=== PATIENT | female | born 1955 | race Caucasian/White ===

== ENCOUNTER 2019-11-16 11:26 | Observation (INO) | payer OTHER ==
[~2019-11-16] VITALS: Ht 162.6 cm; Wt 62.9 kg
--- NOTE | 2019-11-16 11:28 | NUR ---
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 RICHARDSON. NO NEED FOR CODE NEURO AT THIS TIME SX HAVE RESOLVED.
--- NOTE | 2019-11-16 11:30 | NUR ---
BIB [facility] FOR APHASIA NOTICED BY AT 1130. BY THE TIME [facility] ARRIVED ON SCENE SYMPTOMS RESOLVED FSBS 137 ON [address] (TOOK THIS AM) NO HX OF TIA/STROKE. DOES HAVE EXTENSIVE CARDIAC/VASCULAR DX WITH MULTIPLE STENTS ON ARRIVAL [facility] COMPLETELY NEGATIVE. PROVIDER TO BEDSIDE- NO CODE NEURO BUT TO HAVE EXPEDITED STROKE WORKUP
--- NOTE | 2019-11-16 11:52 | NUR ---
Called CT scan to expedite imaging Patient remains asymptomatic
--- NOTE | 2019-11-16 11:59 | NUR ---
LABS DRAWN AT 1155AM TO CT SCAN AT 1158AM
[2019-11-16] MEDS ORDERED: PLEASE ENTER HEIGHT AND WEIGHT MC SCH (12:00)
[2019-11-16] MEDS ORDERED: SODIUM CHLORIDE FLUSH 10ML SYR IVF ONE (12:00)
[2019-11-16] MEDS ORDERED: PLEASE ENTER ALLERGIES MC SCH (12:00)
[2019-11-16 12:09] LABS: BASOPHILS # (AUTO) 0.01 x10^3/uL (0-0.1); BASOPHILS % (AUTO) 0 % (0-1); EOSINOPHILS # (AUTO) 0.19 x10^3/uL (0-0.4); EOSINOPHILS % (AUTO) 2 % (1-7); LYMPHOCYTES # (AUTO) 1.64 x10^3/uL (1-3.4); LYMPHOCYTES % (AUTO) 19 % (22-44); MD NO; MEAN CORPUSCULAR HEMOGLOBIN 31.2 pg (27.0-34.8); MEAN CORPUSCULAR HGB CONC 33.7 g/dL (32.4-35.8); MEAN CORPUSCULAR VOLUME 92.7 fL (80-100); MEAN PLATELET VOLUME 7.4 fL (7.4-10.4); MONOCYTES # (AUTO) 0.66 x10^3/uL (0.2-0.8); MONOCYTES % (AUTO) 8 % (2-9); NEUTROPHILS # (AUTO) 6.27 x10^3/uL (1.8-6.8); NEUTROPHILS % (AUTO) 72 % (42-75); PLATELET COUNT 251 x10^3/uL (130-400); RED BLOOD COUNT 4.77 x10^6/uL (3.82-5.3); RED CELL DISTRIBUTION WIDTH 13.4 % (9.6-15.2)
[2019-11-16 12:16] LABS: INTERNATIONAL NORMALIZED RATIO 0.92 (0.93-1.1); PROTHROMBIN TIME 9.7 Seconds (9.6-11.5)
[2019-11-16 12:17] LABS: ALBUMIN 3.3 g/dL (3.4-5.0); ANION GAP 6 mmol/L (5-15); CALCIUM 8.9 mg/dL (8.5-10.1); CHLORIDE 107 mmol/L (98-107)
[2019-11-16 12:20] LABS: ALANINE AMINOTRANSFERASE 19 U/L (12-78); ALKALINE PHOSPHATASE 89 U/L (45-117); BILIRUBIN,TOTAL 0.5 mg/dL (0.2-1.0); CREATININE 0.76 mg/dL (0.55-1.02); TOTAL PROTEIN 7.5 g/dL (6.4-8.2)
--- NOTE | 2019-11-16 12:32 | NUR ---
Ua sent Vss on shelter monitor Remains asymptomatic
[2019-11-16 12:44] LABS: MICROSCOPIC NOT IND
[2019-11-16 12:50] LABS: CULTURE INDICATED? NO
[2019-11-16] MEDS ORDERED: SODIUM CHLORIDE FLUSH 10ML SYR IVF PRN (13:00)
--- NOTE | 2019-11-16 13:06 | NUR ---
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
--- NOTE | 2019-11-16 13:18 | NUR ---
lunch tray ordered
--- NOTE | 2019-11-16 13:24 | NUR ---
attempted to call report x 1. Rn unavailable- to call handbook writer back
--- NOTE | 2019-11-16 13:44 | NUR ---
REPORT CALLED TO RENEE FORBES
[2019-11-16] MEDS ORDERED: CLOP75TA52 PO (13:56)
[2019-11-16] MEDS ORDERED: ATOR-2 PO (13:56)
[2019-11-16] MEDS ORDERED: AMIT25TA PO (13:56)
[2019-11-16] MEDS ORDERED: METO50TA82 PO (13:56)
[2019-11-16] MEDS ORDERED: GLYB1TAB14 PO (13:56)
[2019-11-16] MEDS ORDERED: AMLO10TA8 PO (13:56)
[2019-11-16] MEDS ORDERED: LOSA25TA25 PO (13:56)
[2019-11-16] MEDS ORDERED: CALC1TAB84 PO (13:56)
[2019-11-16] MEDS ORDERED: CHOL200040 PO (13:56)
[2019-11-16 16:23] VITALS: BP 156/81
[2019-11-16] MEDS ORDERED: ONDANSETRON 2MG/ML, 2ML IVPush PRN (16:30)
[2019-11-16] MEDS ORDERED: OXYcodone IR 5MG TABLET PO PRN (16:30)
[2019-11-16] MEDS ORDERED: BISACODYL 10 MG SUPP PR PRN (16:30)
[2019-11-16] MEDS ORDERED: PROMETHAZINE 25 MG/ML, 1ML IM PRN (16:30)
[2019-11-16] MEDS ORDERED: ONDANSETRON ODT 4 MG PO PRN (16:30)
[2019-11-16] MEDS ORDERED: POLYETHYLENE GLYCOL 17 GM PACKET PO PRN (16:30)
[2019-11-16] MEDS ORDERED: hydrALAzine 20 MG/ML, 1ML IVPush PRN (16:30)
[2019-11-16] MEDS ORDERED: DOCUSATE 100 MG CAPSULE PO PRN (16:30)
[2019-11-16] MEDS ORDERED: morphine SULFATE 10 MG/ML, 1ML IVPush PRN (16:30)
[2019-11-16 17:03] LABS: MICROSCOPIC NOT IND
[2019-11-16 17:07] LABS: CULTURE INDICATED? NO
[2019-11-16 17:08] LABS: FREE T4 (FREE THYROXINE) 1.2 ng/dL (0.76-1.46)
[2019-11-16] MEDS: INSULIN LISPRO 100 UNITS/ML, PEN SQ-INSULIN SCH ×2 (17:42→21:11)
[2019-11-16] MEDS ORDERED: OMNIPAQUE 350 MG/ML, 100ML BOTTLE ONE (17:46)
[2019-11-16] MEDS: SODIUM CHLORIDE 0.9% 1,000 ML IV SCH (18:26)
[2019-11-16] MEDS: HEPARIN 5,000 UNITS/ML, 1ML SQ SCH (18:26)
[2019-11-16 19:55] VITALS: BP 121/73
[2019-11-16] MEDS ORDERED: AMITRIPTYLINE 25 MG TABLET PO SCH (21:00)
[2019-11-16] MEDS ORDERED: ATORVASTATIN 80 MG TABLET PO SCH (21:00)
[2019-11-16] MEDS: METOPROLOL TARTRATE 50 MG TABLET PO SCH (21:11)
[2019-11-17 00:57] VITALS: BP 119/65
[2019-11-17] MEDS: HEPARIN 5,000 UNITS/ML, 1ML SQ SCH ×2 (01:35→09:05)
[2019-11-17] MEDS: SODIUM CHLORIDE 0.9% 1,000 ML IV SCH (04:10)
[2019-11-17] MEDS: ASPIRIN 325 MG TABLET EC PO SCH ×2 (06:08→09:07)
[2019-11-17 06:57] LABS: BASOPHILS # (AUTO) 0.03 x10^3/uL (0-0.1); BASOPHILS % (AUTO) 0 % (0-1); EOSINOPHILS # (AUTO) 0.21 x10^3/uL (0-0.4); EOSINOPHILS % (AUTO) 2 % (1-7); LYMPHOCYTES # (AUTO) 2.03 x10^3/uL (1-3.4); LYMPHOCYTES % (AUTO) 24 % (22-44); MD NO; MEAN CORPUSCULAR HEMOGLOBIN 30.9 pg (27.0-34.8); MEAN CORPUSCULAR VOLUME 93.7 fL (80-100); MEAN PLATELET VOLUME 7.5 fL (7.4-10.4); MONOCYTES # (AUTO) 0.65 x10^3/uL (0.2-0.8); MONOCYTES % (AUTO) 8 % (2-9); NEUTROPHILS # (AUTO) 5.63 x10^3/uL (1.8-6.8); NEUTROPHILS % (AUTO) 66 % (42-75); PLATELET COUNT 228 x10^3/uL (130-400); RED BLOOD COUNT 4.76 x10^6/uL (3.82-5.3); RED CELL DISTRIBUTION WIDTH 13.4 % (9.6-15.2)
[2019-11-17] MEDS: INSULIN LISPRO 100 UNITS/ML, PEN SQ-INSULIN SCH ×2 (07:00→11:00)
[2019-11-17 07:01] LABS: ALANINE AMINOTRANSFERASE 23 U/L (12-78); ANION GAP 4 mmol/L (5-15); CALCIUM 8.9 mg/dL (8.5-10.1); CHLORIDE 111 mmol/L (98-107); CREATININE 0.71 mg/dL (0.55-1.02); TRIGLYCERIDES 157 mg/dL (50-200)
[2019-11-17 07:02] LABS: CHOLESTEROL, TOTAL 175 mg/dL (140-239); VLDL CHOLESTEROL 31 mg/dL (0-25)
[2019-11-17 07:04] LABS: ALKALINE PHOSPHATASE 75 U/L (45-117); BILIRUBIN,TOTAL 0.5 mg/dL (0.2-1.0); CHOL/HDL RATIO 2.6; HDL CHOL % 39 % (28-40); HDL CHOLESTEROL (DIRECT) 68 mg/dL (40-60); LDL CHOLESTEROL,CALCULATED 76 mg/dL (54-169); LDL/HDL RATIO 1.1 (0.5-3.0)
[2019-11-17 07:57] VITALS: BP 166/78
[2019-11-17] MEDS ORDERED: CHOLECALCIFEROL 1,000 UNIT TABLET PO SCH (09:00)
[2019-11-17] MEDS ORDERED: CALCIUM/VITAMIN D3 250-125 TABLET PO SCH (09:00)
[2019-11-17] MEDS ORDERED: CLOPIDOGREL 75 MG TABLET PO SCH (09:00)
[2019-11-17] MEDS ORDERED: AMLODIPINE 5 MG TABLET PO SCH (09:00)
[2019-11-17] MEDS ORDERED: LOSARTAN 25MG TABLET PO SCH (09:00)
[2019-11-17] MEDS: METOPROLOL TARTRATE 50 MG TABLET PO SCH (09:06)
[2019-11-17 13:02] VITALS: BP 124/56
== END 2019-11-17 15:21 | disposition home or self-care (01) ==
LOC: ED 13:33 → 4EST 15:49 → INTOOBSV 15:49
PROVIDERS: ADMIT Emergency Medicine; ATTEND Internal Medicine
DX: G45.9 Transient cerebral ischemic attack, unspecified (principal); E11.9 Type 2 diabetes mellitus without complications; E78.5 Hyperlipidemia, unspecified; I25.10 Atherosclerotic heart disease of native coronary artery without angina pectoris; I10 Essential (primary) hypertension; Z87.891 Personal history of nicotine dependence; I25.2 Old myocardial infarction; G46.0 Middle cerebral artery syndrome; Z79.02 Long term (current) use of antithrombotics/antiplatelets; Z95.1 Presence of aortocoronary bypass graft; Z79.899 Other long term (current) drug therapy
CPT/HCPCS: 36415; 70450; 70496; 70498; 71045; 80053; 80061; 81003; 82962; 83036; 83735; 84439; 84443; 85025; 85610; 85730; 93005; 93306; 96372; 97162; 97165; 99284; G0378; J1644; J1815; J7030; Q9967; 99285